=== PATIENT | female | born 1980 ===

== ENCOUNTER → 2025-06-26 | Outpatient (CLI) | payer OTHER | END | disposition home or self-care (01) | LOC: SONOGRAMA 13:09 | DX: M25.561 Pain in right knee (principal) ==

== ENCOUNTER 2025-08-11 13:13 | Outpatient (CLI) | payer OTHER | END 2025-08-11 13:25 | disposition home or self-care (01) | LOC: MRI 13:13 | DX: M25.561 Pain in right knee (principal) | CPT/HCPCS: 73721 ==